=== PATIENT | female | born 1990 | race Hispanic/Latino ===

== ENCOUNTER 2018-12-03 16:53 | Emergency (ER) | payer OTHER ==
[2018-12-03 17:44] VITALS: BP 140/89; PULSE 62; RESP 18; TEMP 98.6; O2SAT 100
--- NOTE | 2018-12-03 20:02 | ED PDOC ---
HPI: Skin/Bite Injury Time Seen by Provider: 12/03/18 17:50 Chief Complaint (Nursing): Bite Chief Complaint (Provider): Bite History Per: Patient History/Exam Limitations: no limitations Onset/Duration Of Symptoms: Days (x5) Current Symptoms Are (Timing): Still Present Additional Complaint(s): 28 year old female presents to the ED stating over the weekend, patient was in [place] when she noticed 2 small puncture wound like bites on her right hand. Patient states initially there was some redness around the area. Patient was informed by friend who was with her in [place] that they may have been in an area where there are bats. 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 She reports redness around the wound has resolved. She has had her tetanus vaccination within the last 5 years. PMD: none provided Past Medical History Reviewed: Historical Data, Nursing Documentation, Vital Signs Vital Signs: Last Vital Signs Temp 98.6 F 12/03/18 17:42 Pulse 62 12/03/18 17:42 Resp 18 12/03/18 17:42 BP 140/89 12/03/18 17:42 Pulse Ox 100 12/03/18 17:42 - Medical History PMH: No Chronic Diseases - Surgical History Surgical History: No Surg Hx - Family History Family History: States: Unknown Family Hx - Allergies Allergies/Adverse Reactions: Allergies Allergy/AdvReac Type Severity Reaction Status Date / Time No Known Allergies Allergy Verified 12/03/18 17:42 Review of Systems ROS Statement: Except As Marked, All Systems Reviewed And Found Negative Skin: Positive for: Other (2 small puncture wounds on the right hand) Physical Exam - Reviewed Nursing Documentation Reviewed: Yes Vital Signs Reviewed: Yes - Physical Exam Appears: Positive for: No Acute Distress Extremity: Positive for: Other (2 pinpoint superficial puncture wounds on the first interdigital web space of the right dorsum hand. No surrounding erythema, active bleeding, or discharge.) - ECG O2 Sat by Pulse Oximetry: 100 (RA) Pulse Ox Interpretation: Normal Medical Decision Making Medical Decision Making: Initial Impression: Bite Initial Plan: --ED urine --Rabies vaccination 2.5 units IM --Rabies Immune Globulin 2680 units IM Due to onset length of time between bite and ED visit and that erythema has resolved. No abx will be prescribed at this time. Pt. agrees with plan and care. Scribe Attestation: Documented by Luis Fernando Manzo acting as a scribe for Eben MCGREGOR Provider Scribe Attestation: All medical record entries made by the Scribe were at my direction and personally dictated by me. I have reviewed the chart and agree that the record accurately reflects my personal performance of the history, physical exam, medical decision making, and the department course for this patient. I have also personally directed, reviewed, and agree with the discharge instructions and disposition. Disposition - Clinical Impression Clinical Impression: Bat bite wound - Patient ED Disposition Is Patient to be Admitted: No - Disposition Referrals: [facility] [Outside] Disposition: Routine/Home Disposition Time: 17:59 Condition: STABLE Additional Instructions: RETURN TO ED ON THESE DAYS FOR RABIES VACCINATION: 12/06/2018 12/10/2018 12/17/2018 AUDREY HARRIS, thank you for letting us take care of you today. Your provider was Mike Angel MD and you were treated for ANIMAL BITE. The emergency medical care you received today was directed at your acute symptoms. If you were prescribed any medication, please fill it and take as directed. It may take several days for your symptoms to resolve. Return to the Emergency Department if your symptoms worsen, do not improve, or if you have any other problems. Please contact your doctor or call one of the physicians/clinics you have been referred to that are listed on the Patient Visit Information form that is included in your discharge packet. Bring any paperwork you were given at discharge with you along with any medications you are taking to your follow up visit. Our treatment cannot replace ongoing medical care by a primary care provider outside of the emergency department. Thank you for allowing the [facility] team to be part of your care today. If you had an X-Ray or CT scan: A Radiologist will review the ED reading if any change in treatment is needed we will contact you. If you had a blood, urine, or wound culture: It will take several days for the results, if any change in treatment is needed we will contact you. If you had an STI test: It will take 48 hours for the results. Please call after 1 week if you have not heard back. Instructions: Rabies (DC), Rabies Immune Globulin (Human) Forms: [employer] (Tuvaluan)
== END 2018-12-03 21:05 | disposition home or self-care (01) ==
LOC: H.ER 16:53
DX: S61.431A Puncture wound without foreign body of right hand, initial encounter (principal); W55.81XA Bitten by other mammals, initial encounter; Y92.89 Other specified places as the place of occurrence of the external cause

== ENCOUNTER 2018-12-06 18:11 | Emergency (ER) | payer SELFPAY ==
[2018-12-06 18:19] VITALS: RESP 18
--- NOTE | 2018-12-06 18:44 | ED PDOC ---
HPI: Wound Care - HPI Time Seen by Provider: 12/06/18 18:25 Chief Complaint (Nursing): Rabies Vaccine Series Chief Complaint (Provider): Rabies Vaccine Series History Per: Patient Exam Limitations: no limitations Onset/Duration Of Symptoms: Days (7x days) Current Symptoms Are (Timing): Gone Now Additional Complaint(s): 28 year old female with no past medical history presents to the ED for her second rabies vaccine. Patient states that 7 or 8x days ago, she may have been bitten by a bat when she was staying at a friends house. Patient is unsure if it was a bat, but states that there were bats in the area, and she woke up with 2x red puncture doshi on her right hand. Patient was seen in the ED on 12/03/2018 for her first rabies vaccination. Patient was not prescribed antibiotics due to lack of signs of infection. Patient has no complaints in the ED. Last menstrual period: Present today PMD: In [place] Past Medical History Reviewed: Historical Data, Nursing Documentation, Vital Signs Vital Signs: Last Vital Signs Temp 97.7 F 12/06/18 18:17 Pulse 69 12/06/18 18:17 Resp 18 12/06/18 18:17 BP 161/89 H 12/06/18 18:17 Pulse Ox 99 12/06/18 18:17 - Medical History PMH: No Chronic Diseases - Surgical History Surgical History: No Surg Hx - Family History Family History: States: No Known Family Hx - Allergies Allergies/Adverse Reactions: Allergies Allergy/AdvReac Type Severity Reaction Status Date / Time No Known Allergies Allergy Verified 12/03/18 17:42 Review of Systems ROS Statement: Except As Marked, All Systems Reviewed And Found Negative Physical Exam - Reviewed Nursing Documentation Reviewed: Yes Vital Signs Reviewed: Yes - Physical Exam Comments: GENERAL APPEARANCE: Patient is awake, alert, oriented x 3, in no acute distress. Resting comfortably, on cell phone. SKIN: Warm, dry; (-) cyanosis. NECK: Supple, FROM ENT: Mucus membranes moist. Airway patent, (-) stridor. CHEST AND RESPIRATORY: (-) rales, (-) rhonchi, (-) wheezes; breath sounds equal bilaterally. HEART AND CARDIOVASCULAR: (-) irregularity NEURO AND PSYCH: Mental status as above. Gait: steady. Speech: clear. (-) facial asymmetry - ECG O2 Sat by Pulse Oximetry: 99 (RA) Pulse Ox Interpretation: Normal Medical Decision Making Medical Decision Makin:25 Clinical impression: 28 year old female in the ED for the rabies vaccine Initial plan: * rabavert vaccine inj 2.5 units IM once * reevaluation 1919 Repeat BP: 131/80 On re-evaluation, patient reports improvement of symptoms. On exam, patient remains AAOx3, in no acute distress. Vitals stable. Lab/Diagnostic results d/w the patient in great detail. Diagnosis of need for rabies vaccination, possible bat bite d/w the patient. Based on history, exam and diagnostic results, plan will be for follow up in ED for subsequent rabies vaccines. Patient instructed to follow-up with pmd / referral provided / the clinic in 1- 2 days without fail. Return to the emergency room at any time for any new or worsening symptoms. Patient states she fully agrees with and understands discharge instructions. States that she agrees with the plan and disposition. Verbalized and repeated discharge instructions and plan. I have given the patient opportunity to ask any additional questions. Scribe Attestation: Documented byAltagracia Hgigins, acting as a scribe for Altagracia Vernon Provider Scribe Attestation: All medical record entries made by the Scribe were at my direction and personally dictated by me. I have reviewed the chart and agree that the record accurately reflects my personal performance of the history, physical exam, medical decision making, and the department course for this patient. I have also personally directed, reviewed, and agree with the discharge instructions and disposition. Disposition - Clinical Impression Clinical Impression: Need for rabies vaccination - Patient ED Disposition Is Patient to be Admitted: No Counseled Patient/Family Regarding: Studies Performed, Diagnosis, Need For Followup - Disposition Disposition: Routine/Home Disposition Time: 19:20 Condition: STABLE Additional Instructions: RETURN TO ED PREVIOUSLY DIRECTED FOR SUBSEQUENT RABIES VACCINE. The emergency medical care you received today was directed at your acute sy mptoms. If you were prescribed any medication, please fill it and take as directed. It may take several days for your symptoms to resolve. Return to the Emergency Department if your symptoms worsen, do not improve, or if you have any other problems. Please contact your doctor in 2 days for re-evaluation and follow up / or call one of the physicians/clinics you have been referred to that are listed on the Patient Visit Information form that is included in your discharge packet. Bring any paperwork you were given at discharge with you along with any medications you are taking to your follow up visit. Our treatment cannot replace ongoing medical care by a primary care provider (PCP) outside of the emergency department. Instructions: Rabies, Rabies Vaccine Forms: [employer] (Urdu) Print Language: CITIZEN OF [place] - POA Present On Arrival: None
[2018-12-06 19:08] VITALS: BP 131/80; PULSE 71; TEMP 98
[2018-12-06 19:23] VITALS: O2SAT 99
== END 2018-12-06 20:48 | disposition home or self-care (01) ==
LOC: H.ER 18:11
DX: Z23 Encounter for immunization (principal)

== ENCOUNTER 2018-12-11 09:50 | Emergency (ER) | payer SELFPAY ==
[2018-12-11 09:53] VITALS: BP 152/83; PULSE 71; RESP 17; TEMP 98.2; O2SAT 98
--- NOTE | 2018-12-11 10:25 | ED PDOC ---
HPI: General Adult Time Seen by Provider: 12/11/18 10:09 Chief Complaint (Nursing): Rabies Vaccine Series Chief Complaint (Provider): Rabies Vaccine Series History Per: Patient History/Exam Limitations: no limitations Additional Complaint(s): Stella Lazaro is a 28 year old female with no past medical history, who presents to the emergency department for her 3rd out of 4 rabies vaccine. Patient is not complaining of any symptoms at this time. PMD: Jenna Massey Past Medical History Reviewed: Historical Data, Nursing Documentation, Vital Signs Vital Signs: Last Vital Signs Temp 98.2 F 12/11/18 09:53 Pulse 71 12/11/18 09:53 Resp 17 12/11/18 09:53 BP 152/83 H 12/11/18 09:53 Pulse Ox 98 12/11/18 09:53 - Medical History PMH: No Chronic Diseases - Surgical History Surgical History: No Surg Hx - Family History Family History: States: Unknown Family Hx - Allergies Allergies/Adverse Reactions: Allergies Allergy/AdvReac Type Severity Reaction Status Date / Time No Known Allergies Allergy Verified 12/03/18 17:42 Review of Systems ROS Statement: Except As Marked, All Systems Reviewed And Found Negative Constitutional: Negative for: Fever, Chills Physical Exam - Reviewed Nursing Documentation Reviewed: Yes Vital Signs Reviewed: Yes - Physical Exam Appears: Positive for: Non-toxic, No Acute Distress Head Exam: Positive for: ATRAUMATIC, NORMOCEPHALIC Skin: Positive for: Normal Color, Warm, Dry Cardiovascular/Chest: Positive for: Regular Rate, Rhythm. Negative for: Murmur Respiratory: Positive for: Normal Breath Sounds. Negative for: Respiratory Distress - ECG O2 Sat by Pulse Oximetry: 98 (RA) Pulse Ox Interpretation: Normal Medical Decision Making Medical Decision Making: Time: 101 Impression: rabies vaccine series Plan: --Rabies vaccine 2.5 units IM Scribe Attestation: Documented by Andrew Mejias, acting as a scribe for Raissa Babin MD. Provider Scribe Attestation: All medical record entries made by the Scribe were at my direction and personally dictated by me. I have reviewed the chart and agree that the record accurately reflects my personal performance of the history, physical exam, medical decision making, and the department course for this patient. I have also personally directed, reviewed, and agree with the discharge instructions and disposition. Disposition - Clinical Impression Clinical Impression: Need for rabies vaccination - Patient ED Disposition Is Patient to be Admitted: No Doctor Will See Patient In The: Office Counseled Patient/Family Regarding: Diagnosis, Need For Followup - Disposition Disposition: Routine/Home Disposition Time: 10:27 Condition: STABLE Additional Instructions: Followup as scheduled Forms: [employer] (Russian) - POA Present On Arrival: Falls Or Trauma
== END 2018-12-11 10:39 | disposition home or self-care (01) ==
LOC: H.ER 09:50
DX: Z23 Encounter for immunization (principal)

== ENCOUNTER 2018-12-18 07:48 | Emergency (ER) | payer OTHER ==
[2018-12-18 07:59] VITALS: BMI 42.5
[2018-12-18 08:00] VITALS: RESP 17
--- NOTE | 2018-12-18 08:17 | ED PDOC ---
HPI: General Adult Time Seen by Provider: 12/18/18 07:55 Chief Complaint (Provider): need my last vaccine History Per: Patient History/Exam Limitations: no limitations Recently: Seen In ED Additional Complaint(s): 28yo female states was biten by a bat, presumably in [place] in mid november, now here for followup vaccine. Denies complaints. No reactions to prior vaccines. Past Medical History Vital Signs: Last Vital Signs Temp 98.2 F 12/18/18 07:59 Pulse 70 12/18/18 07:59 Resp 17 12/18/18 07:59 BP 141/94 H 12/18/18 07:59 Pulse Ox 98 12/18/18 07:59 - Family History Family History: States: Unknown Family Hx - Allergies Allergies/Adverse Reactions: Allergies Allergy/AdvReac Type Severity Reaction Status Date / Time No Known Allergies Allergy Verified 12/03/18 17:42 Physical Exam - Reviewed Nursing Documentation Reviewed: Yes Vital Signs Reviewed: Yes - Physical Exam Appears: Positive for: Well, Non-toxic Head Exam: Positive for: ATRAUMATIC Respiratory: Negative for: Respiratory Distress Neurologic/Psych: Positive for: Alert, Oriented - ECG O2 Sat by Pulse Oximetry: 98 Medical Decision Making Medical Decision Making: rabies vaccine ordered to monitor for any reaction thereafter and if stable, discharge from ED Disposition - Clinical Impression Clinical Impression: Need for rabies vaccination - Patient ED Disposition Is Patient to be Admitted: No - Disposition Disposition: Routine/Home Disposition Time: 08:30 Condition: STABLE Additional Instructions: Followup as directed, return to ER for any concern. Instructions: Rabies Vaccine Forms: [employer] (Upper Sorbian)
[2018-12-18 08:49] VITALS: BP 139/70; PULSE 77; TEMP 98
[2018-12-18 21:53] VITALS: O2SAT 98
== END 2018-12-18 08:50 | disposition home or self-care (01) ==
LOC: H.ER 07:48
DX: Z29.14 Encounter for prophylactic rabies immune globulin (principal)